=== PATIENT | male | born 1970 | race Caucasian/White ===

== ENCOUNTER → 2022-08-02 | Outpatient (CLI) | payer OTHER ==
[~2022-08-02] MED LIST: OXYACE7.5T PO; RXOXYACE PO
[2022-08-02 14:15] LABS: Source, Urine Clean Catch
[2022-08-02 19:13] LABS: Appearance, Urine Clear (Clear); Bilirubin, Urine Neg (Neg); Blood, Urine Neg (Neg); Color, Urine Yellow (P-Yellow); Glucose Qualitative, Urine Neg (Neg); Ketones, Urine Neg (Neg); Leukocyte Esterase, Urine Neg (Neg); Nitrite, Urine Neg (Neg); Protein, Urine Neg (Neg); Urobilinogen, Urine NORM (Normal)
== END | disposition home or self-care (01) ==
LOC: LAB SHORT 14:13
PROVIDERS: Family Medicine
DX: I10 Essential (primary) hypertension (principal)
CPT/HCPCS: 81003

== ENCOUNTER → 2023-09-11 | Outpatient (CLI) | payer OTHER ==
[2023-09-11 18:49] LABS: BASOPHILS ABSOLUTE AUTO 0.04 K/mm3 (0.00-0.23); BASOPHILS PERCENT AUTO 1 % (0-2); EOSINOPHILS ABSOLUTE AUTO 0.13 K/mm3 (0.00-0.68); EOSINOPHILS PERCENT AUTO 3 % (0-6); Hematocrit 39.7 % (37.0-53.0); Hemoglobin 13.1 g/dL (13.5-17.5); IMMATURE GRAN ABSOLUTE AUTO 0.01 K/mm3 (0.00-0.10); IMMATURE GRAN PERCENT AUTO 0 % (0-1); LYMPHOCYTES PERCENT AUTO 30 % (21-46); MONOCYTES ABSOLUTE AUTO 0.49 K/mm3 (0.16-1.47); MONOCYTES PERCENT AUTO 11 % (4-13); Mean Corpuscular HGB 30.4 pg (26.0-34.0); Mean Corpuscular Volume 92 fL (80-100); Mean Platelet Volume 9.2 fL (9.1-12.4); NEUTROPHILS ABSOLUTE AUTO 2.33 K/mm3 (1.96-9.15); NEUTROPHILS PERCENT AUTO 54 % (41-73); Platelet Count 211 K/mm3 (150-400); RDW Standard Deviation 44.3 fL (35.1-46.3); Red Blood Cell Count 4.31 M/mm3 (4.30-5.90)
[2023-09-11 19:29] LABS: LDL/HDL RATIO 2.1; Prostate Specific Antigen 0.626 ng/mL (0.000-4.000); Very Low Density Lipoprot Chol 17 mg/dL (6-32)
[2023-09-11 19:30] LABS: Alanine Aminotransfer (ALT/SGP 25 U/L (12-78); Albumin, Blood 3.8 g/dL (3.4-5.0); Alk Phos 56 U/L (50-136); Anion Gap 5 mmol/L (6-16); Aspartate Aminotrans (AST/SGOT 19 U/L (12-37); Bilirubin, Total 1.6 mg/dL (0.1-1.0); Blood Urea Nitrogen 21 mg/dL (8-24); Bun/Creatinine Ratio 20.8 (12.0-20.0); CHOL/HDL RATIO 3.4; CO2, Blood 30 mmol/L (21-32); Calcium, Blood 9.2 mg/dL (8.5-10.1); Chloride, Blood 105 mmol/L (98-108); Cholesterol 184 mg/dL (50-200); Creatinine, Blood 1.01 mg/dL (0.60-1.20); Globulin, Blood 3.8 g/dL (2.2-4.0); Glomerular Filtration Rate 88 (60-); Glucose, Blood 105 mg/dL (70-99); HDL Cholesterol 54 mg/dL (>39); Low Density Lipoprotein Chol 113 mg/dL (0-110); Potassium, Blood 3.8 mmol/L (3.5-5.5); Sodium, Blood 140 mmol/L (136-145); Total Protein, Blood 7.6 g/dL (6.4-8.2); Triglycerides 85 mg/dL (30-160)
== END | disposition home or self-care (01) ==
LOC: LAB SHORT 17:03
PROVIDERS: Family Medicine
DX: Z12.5 Encounter for screening for malignant neoplasm of prostate (principal); Z13.1 Encounter for screening for diabetes mellitus; I10 Essential (primary) hypertension; E78.2 Mixed hyperlipidemia
CPT/HCPCS: 80053; 80061; 83036; 85025; G0103

== ENCOUNTER 2024-08-14 06:48 | Day surgery (SDC) | payer OTHER ==
[~2024-08-14] VITALS: Ht 177.8 cm; Wt 101.8 kg
[~2024-08-14 06:48] MED LIST changes: +ATOR10 PO; +ZESTORETIC 20-1 EAC1 PO
[2024-08-14] MEDS ORDERED: Lactated Ringer's 1,000 ML IV ONE ×2 (08:04→08:59)
[2024-08-14] MEDS ORDERED: propofoL 100 ML IV ONE (08:14)
[2024-08-14] MEDS ORDERED: Lidocaine HCl 4% 5 ML SDA ONE (08:50)
[2024-08-14] MEDS ORDERED: Midazolam HCL 1 MG/ML 5MLVIAL ONE (09:13)
[2024-08-14 10:16] VITALS: BP 104/62
--- NOTE | 2024-08-14 10:33 | NUR ---
08/14/24 1033 MARQUEZ KIRKPATRICK PT ARGUED WITH RN ABOUT DRESSING WHILE SHE WAS IN THE ROOM AFTER SHE EXPLAINED HIM BEING A FALL RISK. RN WAS INFORMED THAT PT WAS SUFFERING FROM DTs AND POLICY WAS TO STAY WITH PTS WHO ARE A RISK OF FALLING. PT REFUSED TO STAND AND WALK FOR HER TO ASSESS HIS STABILITY INITIALLY THEN SUBMITTED TO HER REQUEST. PT WAS STABLE ENOUGH AND SHE ALLOWED HIM TO DRESS ALONE WITH THE UNDERSTANDING THAT HE WAS TO SIT ON BED WHILE DRESSING. NOTE: PT REFUSED OUR FILTERED H20 BECAUSE HE WANTED TO DRINK HIS BOTTLED WATER FROM HIS BAG. PT REFUSED TO LET RN GET HIS WATER OUT FOR HIM. " I WILL GET MYSELF DRESSED AND GET MY WATER AFTER YOU LEAVE" PT SAID. RN SUSPECTED THAT PT MAY HAVE ALCOHOL IN HIS BAG. 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 REPORT GIVEN TO PAKO MOLINA WHO OFFERED TO WALK PT OUT IN A .
== END 2024-08-14 10:22 | disposition home or self-care (01) ==
LOC: ORSCSDS 06:48
PROVIDERS: Internal Medicine Gastroenterology
PROC: 0DBP8ZX Excision of Rectum, Via Natural or Artificial Opening Endoscopic, Diagnostic (ICD-10-PCS; principal; 2024-08-14 09:00)
PROC: 0DBN8ZX Excision of Sigmoid Colon, Via Natural or Artificial Opening Endoscopic, Diagnostic (ICD-10-PCS; principal; 2024-08-14 09:00)
PROC: 0DB98ZX Excision of Duodenum, Via Natural or Artificial Opening Endoscopic, Diagnostic (ICD-10-PCS; 2024-08-14 09:00)
PROC: 0DB68ZX Excision of Stomach, Via Natural or Artificial Opening Endoscopic, Diagnostic (ICD-10-PCS; 2024-08-14 09:00)
DX: D64.9 Anemia, unspecified (principal); K63.5 Polyp of colon; K62.1 Rectal polyp; I10 Essential (primary) hypertension; E78.00 Pure hypercholesterolemia, unspecified; G47.30 Sleep apnea, unspecified; E78.2 Mixed hyperlipidemia; E66.9 Obesity, unspecified; Z72.0 Tobacco use; Z68.32 Body mass index [BMI] 32.0-32.9, adult; Z79.899 Other long term (current) drug therapy; Z00.01 Encounter for general adult medical examination with abnormal findings; Z12.5 Encounter for screening for malignant neoplasm of prostate
CPT/HCPCS: 36415; 80053; 80061; 82947; 83036; 85025; 86803; 87389; 88305; 88342; G0103; J2003; J2250; J2704; J7120